=== PATIENT | female | born 1975 | race Caucasian/White ===

== ENCOUNTER 2022-04-09 22:31 | Emergency (ER) | payer OTHER ==
[~2022-04-09] VITALS: Ht 170.2 cm; Wt 45.0 kg
[2022-04-09 22:34] VITALS: BP 122/75
== END 2022-04-09 22:44 ==
LOC: ER 22:31
DX: Z02.79 Encounter for issue of other medical certificate (principal); F17.210 Nicotine dependence, cigarettes, uncomplicated; J45.909 Unspecified asthma, uncomplicated; Z71.6 Tobacco abuse counseling
CPT/HCPCS: 99283; 99406